=== PATIENT | female | born 1995 | race American Indian/Alaskan Native ===

== ENCOUNTER 2019-03-05 12:57 | Emergency (ER) | payer OTHER ==
--- NOTE | 2019-03-05 13:20 | Event Note ---
ED Screening Note ED Screening Note: pt presents with suprapubic cramping that began two days no vaginal bleeding pt is 2 months has no OB pt states that she had it confirmed at [facility] has not had an US /P:0/A:1 no PMHx allergy to iodine no prental vitamin non smoker non drinker no drug use This initial assessment/diagnostic orders/clinical plan/treatment(s) is/are subject to change based on patients health status, clinical progression and re- assessment by fellow clinical providers in the ED. Further treatment and workup at subsequent clinical providers discretion. Patient/guardian urged not to elope from the ED as their condition may be serious if not clinically assessed and managed. Initial orders include: UA, labs, US OB
[2019-03-05 13:22] VITALS: BP 113/71
[2019-03-05 13:50] LABS: Hematocrit 34.3 % (30.3-42.9); Hemoglobin 11.3 gm/dl (10.1-14.3); Mean Corpuscular HGB Conc 33 % (30-34); Mean Corpuscular Volume 79 fl (79-97); Platelet Count 298 K/mm3 (140-440); Red Blood Count 4.32 M/mm3 (3.65-5.03); Red Cell Distribution Width 14.7 % (13.2-15.2)
[2019-03-05 14:02] LABS: Basophils % (Auto) 0.4 % (0.0-1.8); Eosinophils # (Auto) 0.1 K/mm3 (0.0-0.4); Eosinophils % (Auto) 0.9 % (0.0-4.3); Lymphocytes # (Auto) 1.9 K/mm3 (1.2-5.4); Monocytes # (Auto) 0.4 K/mm3 (0.0-0.8); Monocytes % (Auto) 6.2 % (0.0-7.3)
[2019-03-05 14:37] LABS: Bilirubin,Urine NEG (Negative); Blood,Urine NEG (Negative); Color,Urine Yellow (Yellow); Protein,Urine <15 mg/dL mg/dL (Negative); Urobilinogen,Urine < 2.0 mg/dL (<2.0)
[2019-03-05 14:51] LABS: Bacteria,Urine 1+ /HPF (Negative); Mucus,Urine FEW /HPF
--- NOTE | 2019-03-05 15:30 | Emergency Department Report ---
Blank Doc - Documentation Documentation: Patient presents to the emergency department with a chief complaint of lower a bdominal pain and cramping. Upon seeing the patient she wasn't leaving the room stating that she had to go and pick someone up from school. Patient left before physical exam, review of systems, and workup could be discussed. The patient eloped
== END 2019-03-05 15:30 | disposition left against medical advice (07) ==
LOC: ED 12:57
DX: O26.891 Other specified pregnancy related conditions, first trimester (principal); R10.9 Unspecified abdominal pain; Z3A.01 Less than 8 weeks gestation of pregnancy; Z53.21 Procedure and treatment not carried out due to patient leaving prior to being seen by health care provider
CPT/HCPCS: 36415; 81001; 84702; 85025